=== PATIENT | male | born 1970 | race Caucasian/White ===

== ENCOUNTER → 2017-09-08 13:33 | Outpatient (CLI) | payer MEDICARE ==
[~2017-09-08 13:33] MED LIST: ADVAIR 500/501 DISK INH; HYDROCODONE-APA1 TAB PO
[2017-10-10 08:30] VITALS: BMI 19.5
== END | disposition home or self-care (01) ==
LOC: D.MRI 13:33
DX: M75.102 Unspecified rotator cuff tear or rupture of left shoulder, not specified as traumatic (principal); X58.XXXA Exposure to other specified factors, initial encounter; Y93.89 Activity, other specified; Y92.89 Other specified places as the place of occurrence of the external cause

== ENCOUNTER 2017-10-10 07:25 | Day surgery (SDC) | payer MEDICARE ==
[~2017-10-10] VITALS: Ht 193 cm; Wt 72.6 kg
--- NOTE | ~2017-10-10 | OP ---
PATIENT NAME: LISA DAWN MEDICAL RECORD: [id number] :66 LOCATION:D.[facility] ADMISSION DATE: SURGEON: DEBRA WYLIE MD DATE OF OPERATION: 10/10/2017 PREOPERATIVE DIAGNOSIS: Impingement syndrome of the left shoulder. POSTOPERATIVE DIAGNOSIS: Impingement syndrome of the left shoulder. PROCEDURES: 1. Arthroscopic distal clavicle excision under separate arthroscopic incision - 1 cm. 2. Arthroscopic subacromial decompression, acromioplasty, and bursectomy. SURGEON: Debra Wylie MD ANESTHESIA: General. INTRAOPERATIVE COMPLICATIONS: None. SUMMARY OF PATHOLOGIC FINDINGS: The patient had partial-thickness tearing to the superior aspect of the rotator cuff on the nonarticular side. The undersurface however was pristine as well as the glenohumeral joint. The patient had a large downward sloping of acromion with excoriation of the coracoacromial ligament as well as grade IV acromioclavicular arthritis with hypertrophic osteophytic spur of the AC joint. OPERATIVE SUMMARY IN DETAIL: After obtaining the appropriate preoperative orthopedic surgery consent as well as anesthetic consultation, evaluation, and clearance, the patient was brought to the operating room and placed on the operating table in supine position. After general laryngeal mask airway was administered, the patient was placed in the right lateral decubitus position. All pressure points were well padded to include axillary roll and down leg peroneal pad. The patient was held firmly to the operating table using the vacuum pack suction system. Left upper extremity and shoulder were then prepped and draped in routine sterile fashion. The arm was held in Arthrex arm holding device at 30 degrees of forward flexion, 30 degrees of abduction, and 10 pounds of traction laterally. Arthroscopy was established in the glenohumeral joint from the posterior portal. Diagnostic arthroscopy did reveal the above findings. Attention was directly turned to the subacromial space. Accessory lateral portal was created, through which the [place] tissue ablation system was utilized to denude the undersurface of the acromion of all soft tissue elements and release the coracoacromial ligament. A 5-0 barrel bur was used to perform acromioplasty at the level of the acromioclavicular joint. Having completed this, attention was turned to distal clavicle excision. Through a separate anterior arthroscopic portal, under direct arthroscopic visualization, distal clavicle was excised anterior to posterior for approximately 1 cm and all osteophytes were taken down from both the acromioclavicular sides. Lastly, resector was used to clear all of the bursa anteriorly and posteriorly as well as laterally and superficially. Nonfull-thickness rotator cuff tearing was noted. This was gently debrided to healthy bleeding tissue. Having completed this, arthroscopy portals were closed in routine interrupted fashion using 4-0 Prolene. Sterile dressings were applied. The patient was awakened and taken to the recovery room in stable condition. All final needle and sponge counts were correct. OPERATIVE REPORT [id number] LISA DAWN ILANA TRANSINT:[id number] Voice Confirmation ID: [id number] DOCUMENT ID: [id number] INESSA MCCOY, DEBRA AMBRIZ at 1352 CC: [id number] DICTATION DATE: 10/10/17 1127 ARCHITECTURAL ASSOCIATE: 10/10/17 1221 [facility] 10/10/17 [id number] [place] [address]
[~2017-10-10 07:25] MED LIST changes: -HYDROCODONE-APA1 TAB PO
[2017-10-10 08:30] VITALS: BP 120/72; Ht 193 cm; Wt 72.6 kg
[2017-10-10 09:01] LABS: HEMATOCRIT 37.4 % (42.0-54.0); HEMOGLOBIN 13.2 g/dL (13.5-17.5); MCH 31.7 pg (26.0-34.0); MCHC 35.3 g/dL (31.0-37.0); MCV 89.7 fL (80.0-100.0); MEAN PLATELET VOLUME 9.4 fL (7.4-10.4); RBC 4.17 10x6/uL (4.20-6.10); RDW 12.9 % (11.5-14.5); WBC 4.5 10x3/uL (4.8-10.8)
[2017-10-10] MEDS ORDERED: HYDROCODONE-APA1 TAB PO (11:23)
== END 2017-10-10 13:15 | disposition home or self-care (01) ==
LOC: D.OPS 07:25 → D.PAN 09:30 → D.OPS 09:55 → D.PAN 10:15 → D.OPS 13:15
PROVIDERS: Anesthesiology
DX: M75.42 Impingement syndrome of left shoulder (principal); Z01.812 Encounter for preprocedural laboratory examination

== ENCOUNTER → 2018-08-28 17:11 | Outpatient (CLI) | payer MEDICARE ==
[~2018-08-28 17:11] MED LIST changes: +HYDROCODONE-APA1 TAB PO
== END | disposition home or self-care (01) ==
LOC: D.LABREF 17:11
DX: R31.9 Hematuria, unspecified (principal)

== ENCOUNTER → 2018-09-11 11:20 | Outpatient (CLI) | payer MEDICARE ==
[2017-10-10 08:30] VITALS: BMI 19.5
== END | disposition home or self-care (01) ==
LOC: D.US 11:20
PROVIDERS: ATTEND Urology
DX: R10.32 Left lower quadrant pain (principal)

== ENCOUNTER → 2018-10-05 08:54 | Outpatient (CLI) | payer MEDICARE ==
[2017-10-10 08:30] VITALS: BMI 19.5
[~2018-10-05 08:54] MED LIST changes: -ADVAIR 500/501 DISK INH; +ADVAIR HFA 230-12 GM INH; +CENTRUM MEN'S1 EACH PO; +GARLIC PO
[2018-10-05 10:21] LABS: ALBUMIN 4.5 g/dL (3.4-5.0); BILIRUBIN - DIRECT 0.2 mg/dL (0.00-0.30); BILIRUBIN - INDIRECT 0.61 mg/dL (0.00-1.00); BILIRUBIN - TOTAL 0.81 mg/dL (0.2-1.3); PROTEIN - SERUM 7.9 g/dL (6.4-8.2)
[2018-10-05 10:31] LABS: APTT 28.8 SECONDS (22.8-39.4); INR 1.02 (0.85-1.17); PROTIME 12.9 SECONDS (11.6-15.0)
[2018-10-06 10:14] LABS: ALPHA FETOPROTEIN -(TUMOR MRK) 3.6 ng/mL (0.0-8.3)
[2018-10-08 15:06] LABS: MITOCHONDRIAL ANTIBODY <20.0 Units (0.0-20.0); SMOOTH MUSCLE ABS (ACTIN) 7 Units (0-19)
== END | disposition home or self-care (01) ==
LOC: D.US 08:30
PROVIDERS: ATTEND Internal Medicine Gastroenterology
DX: R10.30 Lower abdominal pain, unspecified (principal)

== ENCOUNTER 2018-10-10 06:30 | Day surgery (SDC) | payer MEDICARE ==
[2018-10-10 06:49] VITALS: BP 117/55
--- NOTE | 2018-10-10 10:34 | OP ---
PATIENT NAME: LISA DAWN MEDICAL RECORD: [id number] :66 LOCATION:[facility] ADMISSION DATE: SURGEON: NADIR ROBERTS MD DATE OF OPERATION: 10/10/2018 SURGEON: Nadir Roberts MD ANESTHESIA: TIVA by Dr. Stiven Marrufo. DIAGNOSES: Chronic prostatitis, interstitial cystitis. PROCEDURES: Cystoscopy, hydrodistention of the bladder, intravesical Botox injection 100 units, intravesical Rimso instillation. FINDINGS: Nonobstructive prostate with no penile urethral strictures. Single ureteral orifices bilaterally with no bladder tumors. Diffuse bladder inflammation. BLOOD LOSS: None. CLINICAL HISTORY: This is a 48-year-old male, who has chronic left groin and testicle pain for 9 years as well as suprapubic and perineal pain. He has urinary frequency every 1 hour with nocturia also every 1 hour. He has urge urinary incontinence. Microscopic hematuria has been noted. He had a CT scan of the abdomen and pelvis, which showed normal kidneys with no stones. Otherwise, he had a normal CT scan. Ultrasound of the scrotum is normal. Urine cytology is normal. I suspect that he has interstitial cystitis with intractable urge urinary incontinence and that the interstitial cystitis is the cause of the microscopic hematuria and pelvic pain. Interstitial cystitis and chronic prostatitis are 2 labels for basically the same thing. The plan is for cystoscopy, hydrodistention, intravesical Rimso and intravesical Botox injection. I have given him samples of Myrbetriq 50 mg to control his urge incontinence, but they have not really been effective. He is not allergic to any medications. He was given [employer] business development consultant to the OR. DESCRIPTION OF PROCEDURE: The patient was given IV sedation. He was placed in lithotomy position and prepped and draped. We inserted a 17-Hebrew cystoscope with 30-degree lens for visualization. Findings are as outlined above. As I continued to perform cystoscopy, I filled the bladder with 600 mL of normal saline. The bladder became quite diffusely angry and red. We then injected at 10 different locations excluding the ureteral orifices and the trigone 1 mL of Botox solution. Each milliliter had 10 units of Botox dissolved in it. This gave a total of 100 units of Botox. Finally, the bladder was emptied through the cystoscope sheath and the scope was removed. We then inserted a red rubber catheter into the bladder. Through the lumen of the red rubber catheter, we instilled 50 mL of Rimso solution. The solution was left in the bladder and the catheter was removed. The patient will eventually void out the Rimso solution. I will see the patient in followup in 2 weeks' time to see what effect our treatment has had on him. TRANSINT:[id number] Voice Confirmation ID: [id number] DOCUMENT ID: [id number] OPERATIVE REPORT [id number] LISA DAWN ROBERT S MD at 1034 CC: [id number] DICTATION DATE: 10/10/18 0945 [employer] DIRECTOR: 10/10/18 1005 [facility] [address] [place] [address]
--- NOTE | 2018-10-10 10:44 | NUR ---
IV REMOVED AND PT VOIDED. INSTRUCTIONS GIVEN
--- NOTE | 2018-10-10 10:45 | NUR ---
1030 RECIEVED 1000ML OF IV FLUID
== END 2018-10-10 10:55 | disposition home or self-care (01) ==
LOC: D.PAN 06:30 → D.OPS 12:45
PROVIDERS: ATTEND Urology
DX: N41.1 Chronic prostatitis (principal); N30.11 Interstitial cystitis (chronic) with hematuria; Z01.812 Encounter for preprocedural laboratory examination

== ENCOUNTER → 2018-10-25 08:17 | Outpatient (CLI) | payer MEDICARE | END | disposition home or self-care (01) | LOC: D.NM 08:17 | PROVIDERS: ATTEND Internal Medicine Gastroenterology | DX: R10.11 Right upper quadrant pain (principal); R93.5 Abnormal findings on diagnostic imaging of other abdominal regions, including retroperitoneum ==

== ENCOUNTER 2018-11-15 08:05 | Day surgery (SDC) | payer MEDICARE ==
[~2018-11-15] VITALS: Ht 190.5 cm; Wt 71.7 kg
[2018-11-15 09:42] VITALS: BP 110/64; Ht 190.5 cm; Wt 71.7 kg
[2018-11-15] MEDS ORDERED: HYDROCODON-ACE1 EAC7 PO (11:15)
--- NOTE | 2018-11-15 11:50 | NUR ---
REC'D FROM RR. APPLE JUICE AND FL TRAY GIVEN TO PT. STERI STRIPS CDI TO INCISION SITES. FAMILY AT BEDSIDE.
--- NOTE | 2018-11-15 12:20 | NUR ---
TOLERATING FL DIET. FAMILY AT BEDSIDE. RELATES NO URGE TO VOID.
--- NOTE | 2018-11-15 12:50 | NUR ---
DRAINAGE NOTED FROM ONE INCISION SITE ON ABDOMEN. REINFORCED WITH 4X4 GAUZE AND TAPE. NO URGE TO VOID.
--- NOTE | 2018-11-15 13:41 | NUR ---
AMBULATING IN HIS ROOM. STILL HAS NOT VOIDED.
--- NOTE | 2018-11-15 14:05 | NUR ---
NO URGE TO VOID.CRANBERRY JUICE BROUGHT TO PT.
--- NOTE | 2018-11-15 14:55 | NUR ---
CONTINUES WALKING AROUND IN ROOM. STILL NO VOID. FLUIDS INCREASED TO PATIENT VIA LEFT PIV,
--- NOTE | 2018-11-15 15:45 | NUR ---
up to bathroom. VOIDED WITHOUT DIFFICULTY.
--- NOTE | 2018-11-15 16:00 | NUR ---
IV DC'D WITH CATHETER INTACT. WRITTEN AND VERBAL DC INST. GIVEN TO PATIENT. VERBALIZED UNDERSTANDING. WAITING FOR FAMILY TO GET BACK TO THE HOSPITAL.
--- NOTE | 2018-11-15 16:15 | NUR ---
DC'D HOME WITH FAMILY VIA PRIVATE VEHICLE. STABLE AT TIME OF DC.
== END 2018-11-15 16:15 | disposition home or self-care (01) ==
LOC: D.OPS 08:05 → D.PAN 10:45 → D.OPS 16:15
PROVIDERS: ATTEND Surgery
DX: K82.8 Other specified diseases of gallbladder (principal); Z01.812 Encounter for preprocedural laboratory examination

== ENCOUNTER → 2018-12-07 09:47 | Outpatient (CLI) | payer MEDICARE ==
[2018-11-15 09:42] VITALS: BMI 19.7
[~2018-12-07 09:47] MED LIST changes: +HYDROCODON-ACE1 EAC7 PO
== END | disposition home or self-care (01) ==
LOC: D.LAB 09:47
PROVIDERS: ATTEND Internal Medicine Gastroenterology
DX: E88.01 Alpha-1-antitrypsin deficiency (principal)

== ENCOUNTER → 2019-04-02 08:24 | Outpatient (CLI) | payer MEDICARE ==
[2018-11-15 09:42] VITALS: BMI 19.7
[2019-04-03 07:13] LABS: IMMUNOGLOBULIN A 243 mg/dL (90-386); IMMUNOGLOBULIN G 1447 mg/dL (700-1600); IMMUNOGLOBULIN M 95 mg/dL (20-172)
[2019-04-04 20:07] LABS: ANGIOTENSIN CONVERTING ENZYME 39 U/L (14-82)
[2019-04-06 07:13] LABS: IMMUNOGLOBULIN E 3142 IU/mL (6-495)
[2019-04-08 13:08] LABS: FUNGAL - ASP FLAVUS Negative (Neg:<1:1); FUNGAL - ASP NIGER Negative (Neg:<1:1)
== END | disposition home or self-care (01) ==
LOC: D.RAD 01-15 14:30 → D.RT 01-15 15:00 → D.RAD 01-15 15:00 → D.RT 08:24 → D.RAD 08:30
PROVIDERS: ATTEND Internal Medicine Pulmonary Disease
DX: J44.9 Chronic obstructive pulmonary disease, unspecified (principal); R91.8 Other nonspecific abnormal finding of lung field

== ENCOUNTER 2019-04-04 08:17 | Outpatient (CLI) | payer MEDICARE ==
[~2019-04-04] VITALS: Ht 190.5 cm; Wt 72.7 kg
[2019-04-04 08:43] LABS: EOSINOPHILS 10.5 % (0-7); HEMATOCRIT 41.9 % (42.0-54.0); HEMOGLOBIN 14.1 g/dL (13.5-17.5); LYMPHOCYTES 35.5 % (15-50); MCH 31.6 pg (26.0-34.0); MCHC 33.7 g/dL (31.0-37.0); MCV 93.9 fL (80.0-100.0); MEAN PLATELET VOLUME 9.2 fL (7.4-10.4); MONOCYTES 9.9 % (2-11); NEUTROPHILS 43.1 % (40-80); PLATELET COUNT 227 10x3/uL (130-400); RBC 4.46 10x6/uL (4.20-6.10); RDW 13.4 % (11.5-14.5); WBC 3.1 10x3/uL (4.8-10.8)
[2019-04-04 08:55] LABS: ANION GAP 11.1 mmol/L (8-16); CARBON DIOXIDE 31.3 mmol/L (21.0-32.0); CREATININE - SERUM 1.2 mg/dL (0.6-1.3); POTASSIUM - SERUM 4.4 mmol/L (3.5-5.1)
[2019-04-04 09:06] LABS: APTT 26.8 SECONDS (22.8-39.4); INR 0.98 (0.85-1.17); PROTIME 12.5 SECONDS (11.6-15.0)
[2019-04-04 10:05] VITALS: BP 116/66; Ht 190.5 cm; Wt 72.7 kg
--- NOTE | 2019-04-04 12:29 | NUR ---
1200 SEE POST PROCEDURE CHECKLIST FOR VITAL SIGN TRENDS. FAMILY AT BEDSIDE. NPO STATUS EXPLAINED.
== END 2019-04-04 15:35 | disposition home or self-care (01) ==
LOC: D.SP 08:17 → D.CT 11:00 → D.SP 11:00
PROVIDERS: Specialist; ATTEND Internal Medicine Pulmonary Disease
DX: J98.4 Other disorders of lung (principal)

== ENCOUNTER 2019-04-23 21:34 | Emergency (ER) | payer MEDICARE ==
[~2019-04-23] VITALS: Ht 190.5 cm; Wt 72.7 kg
[2019-04-23 21:42] VITALS: Ht 190.5 cm; Wt 72.7 kg
[2019-04-23 22:15] LABS: EOSINOPHILS 5.3 % (0-7); HEMATOCRIT 38.4 % (42.0-54.0); HEMOGLOBIN 13.2 g/dL (13.5-17.5); LYMPHOCYTES 35.1 % (15-50); MCH 31.8 pg (26.0-34.0); MCHC 34.4 g/dL (31.0-37.0); MCV 92.5 fL (80.0-100.0); MEAN PLATELET VOLUME 9.4 fL (7.4-10.4); MONOCYTES 9.4 % (2-11); NEUTROPHILS 49.2 % (40-80); PLATELET COUNT 230 10x3/uL (130-400); RBC 4.15 10x6/uL (4.20-6.10); WBC 3.9 10x3/uL (4.8-10.8)
[2019-04-23 22:24] LABS: APTT 36.5 SECONDS (22.8-39.4); CALC OSMOLALITY 279 mosm/kg (275-300); CALCIUM 9.2 mg/dL (8.5-10.1); CARBON DIOXIDE 25.8 mmol/L (21.0-32.0); CHLORIDE - SERUM 104 mmol/L (98-107); CREATININE - SERUM 1.1 mg/dL (0.6-1.3); GLUCOSE 96 mg/dL (74-106); INR 0.94 (0.85-1.17); POTASSIUM - SERUM 4.1 mmol/L (3.5-5.1); PROTIME 12.1 SECONDS (11.6-15.0); SODIUM 140 mmol/L (136-145); UREA NITROGEN 15 mg/dL (7-18); eGFR NON AFRICAN AMERICAN 75 mL/min (90-120)
[2019-04-23 22:40] LABS: ALBUMIN 3.8 g/dL (3.4-5.0); ALKALINE PHOSPHATASE 90 U/L (46-116); ALT (SGPT) 29 U/L (10-68); BILIRUBIN - TOTAL 0.29 mg/dL (0.2-1.3); CKMB 1.3 U/L (0.0-3.6); CREATINE KINASE 110 UL (21-232); PROTEIN - SERUM 7.7 g/dL (6.4-8.2); TROPONIN-I < 0.017 ng/mL (0.000-0.060)
[2019-04-24 01:53] VITALS: BP 143/79
== END 2019-04-24 01:53 | disposition home or self-care (01) ==
LOC: D.ER 21:34
PROVIDERS: Family Medicine
DX: K21.9 Gastro-esophageal reflux disease without esophagitis (principal); J45.909 Unspecified asthma, uncomplicated

== ENCOUNTER → 2019-12-15 09:49 | Outpatient (CLI) | payer MEDICARE | END | disposition home or self-care (01) | LOC: D.LAB 09:49 | PROVIDERS: ATTEND Family Medicine Adult Medicine | DX: Z11.59 Encounter for screening for other viral diseases (principal) ==

== ENCOUNTER → 2019-12-17 09:25 | Outpatient (CLI) | payer MEDICARE | END | disposition home or self-care (01) | LOC: D.RT 09:25 | PROVIDERS: ATTEND Internal Medicine Pulmonary Disease | DX: J44.9 Chronic obstructive pulmonary disease, unspecified (principal); R91.8 Other nonspecific abnormal finding of lung field ==

== ENCOUNTER 2020-01-08 11:00 | Day surgery (SDC) | payer MEDICARE ==
[~2020-01-08] VITALS: Ht 190.5 cm; Wt 75.0 kg
[2020-01-08 11:18] LABS: BASOPHILS 0.7 % (0-2); EOSINOPHILS 7.4 % (0-7); HEMATOCRIT 41.9 % (42.0-54.0); HEMOGLOBIN 14.1 g/dL (13.5-17.5); LYMPHOCYTES 28.8 % (15-50); MCH 31.4 pg (26.0-34.0); MCHC 33.7 g/dL (31.0-37.0); MCV 93.3 fL (80.0-100.0); MEAN PLATELET VOLUME 8.9 fL (7.4-10.4); NEUTROPHILS 53.1 % (40-80); PLATELET COUNT 205 10x3/uL (130-400); RBC 4.49 10x6/uL (4.20-6.10)
[2020-01-08 11:26] LABS: APTT 26.3 SECONDS (22.8-39.4); INR 0.94 (0.85-1.17); PROTIME 12.5 SECONDS (11.6-15.0)
[2020-01-08 11:46] VITALS: BP 115/72; Ht 190.5 cm; Wt 75.0 kg
--- NOTE | 2020-01-08 16:16 | NUR ---
1345 VITAL SIGNS ARE BEING RECORDED ORDERED ON POST PROCEDURE FORM AND PART OF THE PAPER CHART. 1417 PORTABLE CHEST X-RAY DONE 1500 TESTED PT'S GAG REFLEX WITH QTIP TO BACK OF THROAT. PT GAGGED AND WAS ALSO ABLE TO SWALLOW A PIECE OF ICE WITHOUT DIFFICULTY. PT GIVEN A SODA TO DRINK. 1538 IV DC'D. CATHETER TIP INTACT. NO BLEEDING AT SITE. BANDAID APPLIED. 1545 DISCHARGE INSTRUCTIONS REVIEWED WTIH PT AND HIS MOTHER WHO BOTH VOICE UNDERSTANDING OF INSTRUCTIONS. PT DENIES CP OR SOB. NO COUGHING NOTED. CXR WAS REVIEWED AND OK.
--- NOTE | 2020-01-08 16:29 | NUR ---
1549 PT'S VS HAVE BEEN STABLE WITH NO COMPLICATIONS POST BRONCHOSCOPY.
[2020-01-09 14:11] LABS: FUNGUS STAIN Final report (())
[2020-01-09 16:09] LABS: ACID FAST SMEAR Negative (()); AFB SPECIMEN PROCESSING Concentration (())
== END 2020-01-08 15:49 | disposition home or self-care (01) ==
LOC: D.OPS 11:00
PROVIDERS: ATTEND Internal Medicine Pulmonary Disease
DX: J18.9 Pneumonia, unspecified organism (principal); R91.8 Other nonspecific abnormal finding of lung field

== ENCOUNTER → 2020-01-24 14:21 | Outpatient (CLI) | payer MEDICARE ==
[2020-01-08 11:46] VITALS: BMI 20.6
[2020-01-25 10:12] LABS: ANA REFLEX - DIRECT Negative (Negative)
[2020-01-29 15:11] LABS: ANCA - ANTIMYELOPEROXIDASE <9.0 U/mL (0.0-9.0); ANCA - ANTIPROTEINASE 3 <3.5 U/mL (0.0-3.5); ANCA - ATYPICAL <1:20 titer (Neg:<1:20); ANCA - CYTOPLASMIC <1:20 titer (Neg:<1:20); ANCA - PERINUCLEAR <1:20 titer (Neg:<1:20)
== END | disposition home or self-care (01) ==
LOC: D.LABREF 14:21
PROVIDERS: ATTEND Internal Medicine Pulmonary Disease
DX: E88.01 Alpha-1-antitrypsin deficiency (principal)

== ENCOUNTER → 2020-03-05 10:24 | Outpatient (CLI) | payer MEDICARE ==
[2020-01-08 11:46] VITALS: BMI 20.6
[2020-03-05 11:10] LABS: BASOPHILS 0.9 % (0-2); EOSINOPHILS 7.9 % (0-7); HEMATOCRIT 40.1 % (42.0-54.0); HEMOGLOBIN 13.7 g/dL (13.5-17.5); LYMPHOCYTES 28.4 % (15-50); MCH 31.6 pg (26.0-34.0); MCHC 34.2 g/dL (31.0-37.0); MCV 92.4 fL (80.0-100.0); MEAN PLATELET VOLUME 8.9 fL (7.4-10.4); MONOCYTES 11.4 % (2-11); NEUTROPHILS 51.4 % (40-80); PLATELET COUNT 197 10x3/uL (130-400); RBC 4.34 10x6/uL (4.20-6.10); RDW 12.5 % (11.5-14.5); WBC 3.2 10x3/uL (4.8-10.8)
[2020-03-05 11:24] LABS: BILIRUBIN - DIRECT 0.07 mg/dL (0.00-0.30); BILIRUBIN - INDIRECT 0.29 mg/dL (0.00-1.00); BILIRUBIN - TOTAL 0.36 mg/dL (0.2-1.3); PROTEIN - SERUM 7.7 g/dL (6.4-8.2)
== END | disposition home or self-care (01) ==
LOC: D.LAB 10:00 → D.CN 10:30
PROVIDERS: ATTEND Internal Medicine Pulmonary Disease
DX: A31.0 Pulmonary mycobacterial infection (principal)

== ENCOUNTER → 2020-09-29 10:18 | Outpatient (CLI) | payer MEDICARE ==
[2020-01-08 11:46] VITALS: BMI 20.6
== END | disposition home or self-care (01) ==
LOC: D.CT 10:18
PROVIDERS: ATTEND Internal Medicine Pulmonary Disease
DX: A31.0 Pulmonary mycobacterial infection (principal)